=== PATIENT | male | born 1985 | race Asian ===

== ENCOUNTER 2022-03-16 16:40 | Emergency (ER) | payer OTHER ==
[2022-03-16 18:02] LABS: CORONAVIRUS 229E-RESP PCR NOT DETECTED; CORONAVIRUS HKU1-RESP PCR NOT DETECTED; CORONAVIRUS NL63-RESP PCR NOT DETECTED; CORONAVIRUS OC43-RESP PCR NOT DETECTED; HUMAN METAPNEUMOVIRUS NOT DETECTED; RHINOVIRUS/ENTEROVIRUS NOT DETECTED; SARS-CoV-2 -RESP PCR PANEL NOT DETECTED
[2022-03-16 18:03] LABS: B. PARAPERTUSSIS- RESP PCR PAN NOT DETECTED; B. PERTUSSIS- RESP PCR PANEL NOT DETECTED; C. PNEUMONIAE- RESP PCR PANEL NOT DETECTED; INFLUENZA A H3- RESP PCR PANEL DETECTED; INFLUENZA B - RESP PCR PANEL NOT DETECTED; M. PNEUMONIAE- RESP PCR PANEL NOT DETECTED; PARAINFLUENZA VIRUS 1 NOT DETECTED; PARAINFLUENZA VIRUS 2 NOT DETECTED; PARAINFLUENZA VIRUS 3 NOT DETECTED; PARAINFLUENZA VIRUS 4 NOT DETECTED; RSV- RESP PCR PANEL NOT DETECTED
[2022-03-16] MEDS ORDERED: IBUPROFEN 800 MG TABLET PO STA (19:04)
--- NOTE | 2022-03-16 19:06 | ED Physician Documentation ---
History of Present Illness - Stated complaint Stated Complaint: DIZZY,COUGH,COLDSWEATS - Chief complaint Chief Complaint: General - History obtained from History obtained from: Patient - History of Present Illness Timing: How many days ago (3) Pain level max: 5 Pain level now: 5 - Additonal information Additional information: Patient is a 36-year-old male, active [employer] who presents to the emergency department with a cough for the past 3 days. Feels lightheaded and dizzy occasionally. Having fever and chills. No nausea or vomiting. No head injury. No neck or back pain. The cough is mostly dry.Better with Motrin and Tylenol, nothing makes it worse Review of Systems Constitutional: reports: Fever, Chills Nose: reports: Rhinorrhea / runny nose, Congestion Respiratory: reports: Cough GI: denies: Nausea, Vomiting, Diarrhea Skin: denies: Rash Musculoskeletal: denies: Neck pain, Back pain Neurologic: reports: Headache (Mild, generalized, comes and goes, dull, aching, throbbing) PD PAST MEDICAL HISTORY - Past Medical History Past Medical History: No - Past Surgical History Past Surgical History: No - Allergies Allergies/Adverse Reactions: Allergies Allergy/AdvReac Type Severity Reaction Status Date / Time No Known Drug Allergies Allergy Verified 03/16/22 16:54 - Social History Does the pt smoke?: No Smoking Status: Never smoker Does the pt drink ETOH?: Yes ETOH Use: Wine, Beer Does the pt have substance abuse?: No - Immunizations Immunizations are current?: Yes - POLST Patient has POLST: No PD ED PE NORMAL - Vitals Vital signs reviewed: Yes - General General: Alert and oriented X 3, No acute distress - HEENT HEENT: Atraumatic, PERRL, Ears normal, Moist mucous membranes, Pharynx benign - Neck Neck: Supple, no meningeal sign, No adenopathy - Cardiac Cardiac: RRR, No murmur, Strong equal pulses - Respiratory Respiratory: No respiratory distress, Clear bilaterally - Abdomen Abdomen: Soft, Non tender, Non distended - Derm Derm: Warm and dry - Extremities Extremities: No edema - Neuro Neuro: Alert and oriented X 3 - Psych Psych: Normal mood, Normal affect Results - Vitals Vitals: Vital Signs - 24 hr 03/16/22 03/16/22 16:54 19:10 Temperature 36.7 C 38.3 C H Heart Rate 100 111 H Respiratory 16 16 Rate Blood Pressure 128/69 112/46 L O2 Saturation 98 100 Oxygen O2 Source Room air - Labs Labs: Laboratory Tests 03/16/22 16:59 Nasal Adenovirus (PCR) NOT DETECTED Nasal B. parapertussis DNA (PCR) NOT DETECTED Nasal Coronavir 229E PCR NOT DETECTED Nasal Coronavir HKU1 PCR NOT DETECTED Nasal Coronavir NL63 PCR NOT DETECTED Nasal Coronavir OC43 PCR NOT DETECTED Nasal Enterovir/Rhinovir PCR NOT DETECTED Nasal Influenza A H3 PCR DETECTED A Nasal Influenza B PCR NOT DETECTED Nasal Parainfluen 1 PCR NOT DETECTED Nasal Parainfluen 2 PCR NOT DETECTED Nasal Parainfluen 3 PCR NOT DETECTED Nasal Parainfluen 4 PCR NOT DETECTED Nasal RSV (PCR) NOT DETECTED Nasal B.pertussis DNA PCR NOT DETECTED Nasal C.pneumoniae (PCR) NOT DETECTED Hernán Human Metapneumo PCR NOT DETECTED Nasal M.pneumoniae (PCR) NOT DETECTED Nasal SARS-CoV-2 (PCR) NOT DETECTED PD MEDICAL DECISION MAKING - ED course Complexity details: reviewed results, re-evaluated patient, considered differential, d/w patient ED course: Patient is well-appearing, nontoxic. Positive for influenza A. Not a candidate for Tamiflu or Xofluza due to length of illness. We will continue supportive care and have him follow-up with his doctor for further care. Eating and drinking without difficulty. Patient counseled regarding signs and symptoms for which I believe and urgent re-evaluation would be necessary. Patient with good understanding of and agreement to plan and is comfortable going home at this time This document was made in part using voice recognition software. While efforts are made to proofread this document, sound alike and grammatical errors may occur. Departure - Departure Disposition: 01 Home, Self Care Clinical Impression: Influenza A Condition: Good Instructions: ED Flu Follow-Up: your,doctor in 1 week if not better [Other] Comments: Drink plenty of fluids and rest. Follow-up with your doctor for further care. Return if you worsen. Forms: Activity restrictions Discharge Date/Time: 03/16/22 19:16
[2022-03-16 19:11] VITALS: BP 112/46
== END 2022-03-16 19:16 | disposition home or self-care (01) ==
LOC: ED 16:40
DX: J10.1 Influenza due to other identified influenza virus with other respiratory manifestations (principal); Z20.822 Contact with and (suspected) exposure to COVID-19
CPT/HCPCS: 87633; 99282; 99283; A9270

== ENCOUNTER 2022-05-04 10:43 | Emergency (ER) | payer OTHER ==
[2022-05-04 10:55] VITALS: BP 125/89
--- NOTE | 2022-05-04 13:52 | ED Physician Documentation ---
PD HPI HEENT - Stated complaint Stated Complaint: L EYE PX - Chief complaint Chief Complaint: Heent - History obtained from History obtained from: Patient - History of Present Illness Timing - onset: How many days ago (2) Timing - duration: Days (2) Timing - details: Gradual onset, Still present Location: Other (left medial eyelid with redness and small bump initially that has gotten bigger and with some purulence. Redness extending to whole eyelid now. No corneal pain/redness. No cold sores on lips.) Review of Systems Eyes: denies: Loss of vision, Decreased vision, Photophobia Nose: denies: Rhinorrhea / runny nose, Congestion Throat: denies: Sore throat Respiratory: denies: Cough PD PAST MEDICAL HISTORY - Past Medical History Derm: None - Past Surgical History Past Surgical History: No - Present Medications Home Medications: Ambulatory Orders Medication Instructions Recorded Confirmed Doxycycline Hyclate 100 mg PO BID 7 Days #14 cap 05/04/22 Erythromycin Base [Erythromycin 1 applic OP QID #3.5 gm 05/04/22 Ophthalmic Ointment] Ibuprofen [Motrin] 600 mg PO TID PRN #20 tab 05/04/22 - Allergies Allergies/Adverse Reactions: Allergies Allergy/AdvReac Type Severity Reaction Status Date / Time No Known Drug Allergies Allergy Verified 05/04/22 10:55 - Social History Does the pt smoke?: No Smoking Status: Never smoker Does the pt drink ETOH?: Yes Does the pt have substance abuse?: No - Immunizations Immunizations are current?: Yes - POLST Patient has POLST: No PD ED PE NORMAL - Vitals Vital signs reviewed: Yes - General General: Alert and oriented X 3, No acute distress, Well developed/nourished - HEENT HEENT: PERRL, EOMI, Other (left medial upper eyelid with redness, swelling, tenderness with small pustule on eyelid. I nicked this with scalp tip and got small drop out. Cultured. ) Results - Vitals Vitals: Vital Signs - 24 hr 05/04/22 10:51 Temperature 36.3 C L Heart Rate 80 Respiratory 16 Rate Blood Pressure 125/89 H O2 Saturation 100 Oxygen O2 Source Room air - Labs Labs: Microbiology 05/04/22 14:01 Wound Culture - Preliminary Face - Left Side PD Medical Decision Making - ED course Complexity details: considered differential (looks like stye that has gotten more into small abscess and devleoping cellulitis of upper eyelid. Will need to treat with topical as well as oral medications. Having moderate pain so can treat that with meds as well. ), d/w patient Departure - Departure Disposition: 01 Home, Self Care Clinical Impression: Eyelid cellulitis Qualifiers: Laterality: left Qualified Code(s): H00.036 - Abscess of eyelid left eye, unspecified eyelid Condition: Stable Record reviewed to determine appropriate education?: Yes Instructions: TAYLOR Forte Follow-Up: RENETTA MORALES MD [Primary Care Provider] - Prescriptions: Doxycycline Hyclate 100 mg PO BID 7 Days #14 cap Erythromycin Base [Erythromycin Ophthalmic Ointment] 1 applic OP QID #3.5 gm Ibuprofen [Motrin] 600 mg PO TID PRN #20 tab PRN Reason: Pain Comments: This looks to be an infection of a gland of the eyelid. However it has extended to include a good part of the eyelid and so we will treated not only with topical antibiotic ointment on the area but also oral antibiotics. I sent prescription for your erythromycin eye ointment to be used on the eyelid area that is infected and also doxycycline oral antibiotic to the [facility] pharmacy. Ibuprofen 3 times daily for pains. We did do a culture from some of the purulence from the area. This should result in a couple of days and we will call you if we need to change antibiotic choice based on it. Otherwise I would anticipate improvement over the next 2 to 3 days and resolved by 3 to 4 days. Recheck if not better in that timeframe. Warm moist towels to the area periodically will help as well. Discharge Date/Time: 05/04/22 14:18
[2022-05-04] MEDS ORDERED: DOXYCYCLINE 100 MG TABLET PO STA (14:03)
[2022-05-04] MEDS ORDERED: IBUPROFEN 600 MG TABLET PO STA (14:03)
[2022-05-04] MEDS ORDERED: ERYTHROMYCIN OPHTH OINT 1 GM TUBE LEFTEYE STA (14:03)
== END 2022-05-04 14:18 | disposition home or self-care (01) ==
LOC: ED 10:43
DX: H00.036 Abscess of eyelid left eye, unspecified eyelid (principal)
CPT/HCPCS: 87070; 87205; 99283; A9270; J3490